=== PATIENT | female | born 1990 | race Asian ===

== ENCOUNTER 2022-08-07 11:36 | Emergency (ER) | payer OTHER ==
[2022-08-07 12:15] VITALS: BP 123/74
--- NOTE | 2022-08-07 13:50 | XRAY Report ---
PROCEDURE: Chest 1 View X-Ray INDICATIONS: chest pain TECHNIQUE: One view of the chest was acquired. COMPARISON: None. FINDINGS: Surgical changes and devices: None. Lungs and pleura: No consolidation or pleural effusion. Low lung volumes. Mediastinum: Mediastinal contours appear normal. Heart size is normal. Bones and chest wall: No suspicious bony lesions. Overlying soft tissues appear unremarkable. IMPRESSION: No acute radiographic abnormality. Reviewed by: Junior Morales MD on 08/07/2022 1:49 PM [facility] [place] Approved by: Junior Morales MD on 08/07/2022 1:49 PM [facility] [place] Station ID: [id number]
== END 2022-08-07 13:38 | disposition left against medical advice (07) ==
LOC: ED 11:36
DX: Z53.21 Procedure and treatment not carried out due to patient leaving prior to being seen by health care provider (principal)

== ENCOUNTER 2022-10-31 09:56 | Outpatient (CLI) | payer OTHER ==
[2022-10-31 11:39] LABS: BASOPHILS # (AUTO) 0.1 10^3/uL (0.0-0.1); BASOPHILS % (AUTO) 0.7 %; EOSINOPHILS # (AUTO) 0.2 10^3/uL (0.0-0.7); EOSINOPHILS % (AUTO) 2.3 %; HCT - HEMATOCRIT 42.3 % (37.0-47.0); HGB - HEMOGLOBIN 13.6 g/dL (12.0-16.0); LYMPHOCYTES # (AUTO) 2.1 10^3/uL (1.5-3.5); LYMPHOCYTES % (AUTO) 20.4 %; MEAN CORPUSCULAR HEMOGLOBIN 28.5 pg (27.0-31.0); MEAN CORPUSCULAR HGB CONC 32.2 g/dL (32.0-36.0); MEAN CORPUSCULAR VOLUME 88.5 fL (81.0-99.0); MEAN PLATELET VOLUME 10.1 fL (7.9-10.8); MONOCYTES # (AUTO) 0.5 10^3/uL (0.0-1.0); MONOCYTES % (AUTO) 5.2 %; NEUTROPHILS # (AUTO) 7.2 10^3/uL (1.5-6.6); PLT - PLATELET COUNT 260 10^3/uL (130-450); RED BLOOD COUNT 4.78 10^6/uL (4.20-5.40); RED CELL DISTRIBUTION WIDTH 12.8 % (12.0-15.0); WHITE BLOOD COUNT 10.1 x10^3/uL (4.8-10.8)
[2022-10-31 12:17] LABS: THYROID STIMULATING HORMONE 1.79 uIU/mL (0.34-5.60)
[2022-10-31 13:54] LABS: ALBUMIN 4.1 g/dL (3.2-5.5); ALBUMIN/GLOBULIN RATIO 1.2 (1.0-2.2); ALKALINE PHOSPHATASE 68 IU/L (42-121); ALT ALANINE AMINOTRANSFERASE 75 IU/L (10-60); AST ASPARTATE AMINOTRANSFERASE 37 IU/L (10-42); BILIRUBIN,TOTAL 0.5 mg/dL (0.2-1.0); BUN - BLOOD UREA NITROGEN 10 mg/dL (6-20); CALCIUM 9.3 mg/dL (8.5-10.3); CARBON DIOXIDE - CO2 28 mmol/L (21-32); CHLORIDE 105 mmol/L (101-111); CHOLESTEROL 153 mg/dL; CREATININE 0.6 mg/dL (0.4-1.0); GFR - MDRD 117 (>89); GLUCOSE 97 mg/dL (70-100); HDL CHOLESTEROL 51 mg/dL; LDL CHOLESTEROL,CALCULATED 92 mg/dL; LDL/HDL RATIO 1.8 (<4.4); POTASSIUM 4.1 mmol/L (3.5-5.0); SODIUM 135 mmol/L (135-145); TOTAL PROTEIN 7.5 g/dL (6.7-8.2); TRIGLYCERIDES 52 mg/dL; VLDL CHOLESTEROL 10 mg/dL
== END 2022-10-31 09:57 | disposition home or self-care (01) ==
LOC: LAB.N 09:56
PROVIDERS: ATTEND Physician Assistant
DX: Z13.9 Encounter for screening, unspecified (principal); Z13.220 Encounter for screening for lipoid disorders; Z13.29 Encounter for screening for other suspected endocrine disorder
CPT/HCPCS: 36415; 80053; 80061; 83721; 84443; 85025

== ENCOUNTER 2023-05-22 12:34 | Outpatient (CLI) | payer OTHER ==
[2023-05-22 17:56] LABS: ALBUMIN 4.3 g/dL (3.2-5.5); ALBUMIN/GLOBULIN RATIO 1.4 (1.0-2.2); BILIRUBIN,TOTAL 0.3 mg/dL (0.2-1.0); CALCIUM 9.5 mg/dL (8.5-10.3); CREATININE 0.6 mg/dL (0.6-1.3); POTASSIUM 3.5 mmol/L (3.5-4.5); TOTAL PROTEIN 7.3 g/dL (6.4-8.9)
== END 2023-05-22 12:35 | disposition home or self-care (01) ==
LOC: LAB.N 12:34
PROVIDERS: ATTEND Physician Assistant
DX: Z02.1 Encounter for pre-employment examination (principal); R79.89 Other specified abnormal findings of blood chemistry; Z13.9 Encounter for screening, unspecified
CPT/HCPCS: 36415; 80053; 81599; 86480; 86787

== ENCOUNTER 2023-09-10 13:15 | Outpatient (CLI) | payer OTHER ==
--- NOTE | 2023-09-10 17:50 | XRAY Report ---
PROCEDURE: Knee 3V LT INDICATIONS: LEFT KNEE PAIN TECHNIQUE: 3 views of the knee(s) were acquired. COMPARISON: None. FINDINGS: Bones: Postsurgical changes are noted in left knee with surgical screws in anterolateral tibial shaft and screw tracks in in distal humeral shaft suggest clinical correlation. No gross hardware loosenin g or failure. No acute fracture or dislocation. Mild medial femoral tibial compartment osteoarthritis . There is radiolucency involving weight-bearing portion of medial femoral condyle concerning for a o steochondral injury measures 1.3 x 0.8 x 1.1 cm in size. Soft tissues: Moderate knee joint effusion. No suspicious soft tissue calcifications or masses. IMPRESSION: 1. Postsurgical changes in left knee as above suggest clinical correlation. Anatomic left knee alignm ent. No gross hardware loosening or failure. 2. No acute fracture or dislocation. Suggestion of osteochondral injury involving weight-bearing port ion of medial femoral condyle and mild medial femoral tibial compartment osteoarthritis. Moderate zuly nt effusion. Reviewed by: Eamon Pope MD on 09/10/2023 5:49 PM PST Approved by: Eamon Pope MD on 09/10/2023 5:49 PM PST Station ID: [id number]
== END 2023-09-10 13:30 | disposition home or self-care (01) ==
LOC: DI.N 13:15
PROVIDERS: ATTEND Family Medicine
DX: M17.12 Unilateral primary osteoarthritis, left knee (principal); M25.462 Effusion, left knee; Z96.89 Presence of other specified functional implants

== ENCOUNTER 2023-10-22 08:00 | Outpatient (CLI) | payer OTHER ==
--- NOTE | 2023-10-22 17:06 | XRAY Report ---
PROCEDURE: Knee 2 View LT INDICATIONS: LEFT KNEE PAIN TECHNIQUE: 2 views of the knee(s) were acquired. COMPARISON: 09/10/2023. FINDINGS: Bones: [place] 14) and left proximal tibia with [address] No gross hardware loosen ing or failure. No acute fractures or dislocations. Mild medial and lateral femoral tibial compartmen t osteoarthritic changes are seen with joint space narrowing and subchondral sclerosis. Radiolucent area involving weightbearing portion of medial femoral condyle is again seen concerning for osteochon dral injury with possible loose fragment. Soft tissues: No knee joint effusion. No suspicious soft tissue calcifications or masses. IMPRESSION: Postsurgical changes in left proximal tibial shaft. Mild medial and lateral femoral tibial compartmen t osteoarthritis in left knee. No acute fracture or dislocation. Possible osteochondral injury again seen involving weightbearing portion of medial femoral condyle with possible unstable fragment. MRI c an be done for further evaluation if indicated. Reviewed by: Eamon Pope MD on 10/22/2023 5:05 PM PDT Approved by: Eamon Pope MD on 10/22/2023 5:05 PM PDT Station ID: [id number]
== END 2023-10-22 23:59 | disposition home or self-care (01) ==
LOC: DI.WOS 08:00
PROVIDERS: ATTEND Orthopaedic Surgery
DX: M17.12 Unilateral primary osteoarthritis, left knee (principal)

== ENCOUNTER 2024-04-11 12:53 | Outpatient (CLI) | payer OTHER ==
--- NOTE | 2024-04-13 12:00 | MRI Report ---
Knee LT WO CLINICAL INFORMATION: 33 years of age, Female, L KNEE DISLOCATION. COMPARISON: None Technique: Multisequence, multiplanar MRI of the left knee was performed without intravenous contrast . FINDINGS: Menisci: The medial and lateral menisci, including the roots, are intact. Cruciate ligaments: The anterior and posterior cruciate ligaments are intact. MCL/LCL: The MCL is unremarkable. The biceps femoris tendon is unremarkable. The fibular collateral ligament is unremarkable. The iliotibial band is intact. The popliteus muscle and tendon also appear intact. Extensor mechanism: The quadricep tendon is unremarkable. The patella tendon is unremarkable. Patellofemoral joint: Alignment within the patellofemoral joint is normal. The patellofemoral ligame nts are intact. Screw tract is seen in the patella. Hypoplastic trochlea. Mild chondrosis of the leo llofemoral compartment with mild chondral irregularity of the patella. Cartilage of the trochlea is g rossly unremarkable. Cartilage and bone: 1.0 cm nondisplaced osteochondral lesion in the weightbearing portion of the medi al femoral condyle, with undercutting fluid. No definitive associated marrow edema. Osteonecrosis of the osteochondral fragment. The cartilage of the lateral compartment is unremarkable. Screw tract is seen in the distal femur. Plate and screw fixation of the anterior tibial tuberosity, creates artifact and limits evaluation. Miscellaneous: Moderate knee effusion. Trace popliteal cyst. No intra-articular bodies are identified . Normal muscle signal intensity and morphology. No vascular anomaly. IMPRESSION: 1.Postprocedural changes, creating artifacts and limits evaluation. 2.1.0 cm nondisplaced osteochondral lesion with osteonecrosis, and undercutting fluid in the weightb earing portion of the medial femoral condyle. 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 4.Moderate knee effusion. Reviewed by: Jami Hirsch MD on 04/13/2024 11:59 AM PDT Approved by: Jami iHrsch MD on 04/13/2024 11:59 AM PDT Station ID: [id number]
== END 2024-04-11 12:54 | disposition home or self-care (01) ==
LOC: DI 12:53
PROVIDERS: ATTEND Orthopaedic Surgery
DX: M87.9 Osteonecrosis, unspecified (principal); M25.462 Effusion, left knee